=== PATIENT | female | born 1980 | race African-American/Black ===

== ENCOUNTER 2016-11-07 15:31 | Outpatient (CLI) | payer OTHER ==
--- OUTSIDE RECORDS SUMMARY | 2016-11-07 15:34 | XMS | Clinical Summary ---
:1980 Author Organization [facility] Address [address] [place] [address] Phone Care Team Providers Name Role Phone , Primary Care Provider Unavailable Allergies Not on File Current Medications Not on file Active Problems Not on file Social History Tobacco Use Types Packs/Day Years Used Date Never Assessed Sex Assigned at Date Recorded Not on file Last Filed Vital Signs Not on file Plan of Treatment Not on file Results Not on filefrom Last 3 Months
== END 2016-11-07 15:32 | disposition home or self-care (01) ==
LOC: DTY/OP 15:31
PROVIDERS: ATTEND Surgery
DX: G47.30 Sleep apnea, unspecified (principal)
CPT/HCPCS: 97802